=== PATIENT | male | born 1960 | race Caucasian/White ===

== ENCOUNTER 2016-10-09 16:54 | Emergency (ER) | payer SELFPAY ==
[~2016-10-09] VITALS: Ht 188 cm; Wt 118.5 kg
[2016-10-09 16:55] VITALS: BP 172/84
[2016-10-09] MEDS ORDERED: INSU100C SQ-INSULIN (17:39)
[2016-10-09] MEDS ORDERED: INSU100V8 SQ (17:39)
== END 2016-10-09 19:02 | disposition home or self-care (01) ==
LOC: ED 18:56
DX: H53.132 Sudden visual loss, left eye (principal); H53.122 Transient visual loss, left eye
CPT/HCPCS: 82962; 99281